=== PATIENT | female | born 1995 | race Caucasian/White ===

== ENCOUNTER 2025-03-11 12:45 | Emergency (ER) | payer SELFPAY ==
[~2025-03-11] VITALS: Ht 167.6 cm; Wt 51.0 kg
[2025-03-11 13:06] VITALS: O2SAT 98
[2025-03-11 17:15] VITALS: BP 126/89; PULSE 88; RESP 12; TEMP 36.6; O2SAT 100
[2025-03-11] MEDS ORDERED: DEXTL MT (17:30)
[2025-03-11] MEDS ORDERED: METH4TAB95 MT (17:30)
[2025-03-11] MEDS: DEXAMETHASONE 10 MG/ML VIAL IV ONE (17:36)
== END 2025-03-11 17:40 | disposition home or self-care (01) ==
LOC: EDBD 12:45 → ER 13:37
DX: R05.9 Cough, unspecified (principal); Z79.899 Other long term (current) drug therapy
CPT/HCPCS: 99283; 96374; 71045; 81025; J1100